=== PATIENT | male | born 1985 | race American Indian/Alaskan Native ===

== ENCOUNTER 2016-03-22 16:15 | Emergency (ER) | payer MEDICAID ==
[2016-03-22 16:41] VITALS: BP 120/74
--- NOTE | 2016-03-22 19:49 | Emergency Department Report ---
ED Extremity Problem HPI - General Chief complaint: Extremity Problem,Nontraumatic Stated complaint: SURGICAL LEFT LEG PAIN Time Seen by Provider: 03/22/16 19:31 Source: patient Mode of arrival: Wheelchair Limitations: No Limitations - History of Present Illness Initial comments: 30-year-old male past medical history ORIF with hardware fixation left knee 2014 presents with complaint of acute on chronic pain left knee. Patient states that approximately 3-1/2 weeks ago he may have twisted his knee while walking. Denies any other acute trauma. Denies any fever no chills. Patient is able to ambulate but with limp and left leg. Normal tone no swelling left leg/knee. Patient denies any paresthesias in left leg. States he has full sensation in left leg from hip down to toes. So he has frequent bouts of pain associated with his left knee. States ORIF was done in [place]. Complaint: extremity pain Onset/Timin -: year(s) Location: left History of Same: Yes -: Yes myalgia Radiation: none Severity scale (0 -10): 6 Quality: aching Consistency: constant Improves with: immobilization Worsens with: weight bearing Associated Symptoms: denies other symptoms - Related Data Previous Rx's Medication Instructions Recorded Last Taken Type Naproxen [Naproxen TAB] 250 mg PO BID PRN #14 tablet 03/22/16 Unknown Rx oxyCODONE [Roxicodone TAB] 5 mg PO Q6HR PRN #8 tablet 03/22/16 Unknown Rx Allergies Allergy/AdvReac Type Severity Reaction Status Date / Time acetaminophen [From Vicodin] Allergy Unknown Verified 03/22/16 16:35 hydrocodone Allergy Itching Verified 03/22/16 16:35 hydrocodone bitartrate Allergy Unknown Verified 03/22/16 16:35 [From Vicodin] oxycodone Allergy Swelling Verified 03/22/16 16:35 ED Review of Systems ROS: Stated complaint: SURGICAL LEFT LEG PAIN Other details as noted in HPI Constitutional: denies: chills, fever Eyes: denies: eye pain, eye discharge, vision change ENT: denies: ear pain, throat pain Respiratory: denies: cough, shortness of breath, wheezing Cardiovascular: denies: chest pain, palpitations Endocrine: no symptoms reported Gastrointestinal: denies: abdominal pain, nausea, diarrhea Genitourinary: denies: urgency, dysuria Musculoskeletal: as per HPI, arthralgia (chronic left knee pain status post knee surgery). denies: back pain, joint swelling Skin: denies: rash, lesions Neurological: denies: headache, weakness, paresthesias Psychiatric: denies: anxiety, depression Hematological/Lymphatic: denies: easy bleeding, easy bruising ED Past Medical Hx - Past Medical History Previous Medical History?: No - Surgical History Additional Surgical History: Left Knee Surgery 2014 - Social History Smoking Status: Never Smoker Substance Use Type: Alcohol, Marijuana - Medications Home Medications: Home Medications Medication Instructions Recorded Confirmed Last Taken Type Naproxen [Naproxen TAB] 250 mg PO BID PRN #14 tablet 03/22/16 Unknown Rx oxyCODONE [Roxicodone TAB] 5 mg PO Q6HR PRN #8 tablet 03/22/16 Unknown Rx ED Physical Exam - General Limitations: No Limitations General appearance: alert, in no apparent distress - Head Head exam: Present: atraumatic, normocephalic - Eye Eye exam: Present: normal appearance, PERRL, EOMI - ENT ENT exam: Present: mucous membranes moist - Neck Neck exam: Present: normal inspection - Respiratory Respiratory exam: Present: normal lung sounds bilaterally. Absent: respiratory distress - Cardiovascular Cardiovascular Exam: Present: regular rate, normal rhythm. Absent: systolic murmur, diastolic murmur, rubs, gallop - GI/Abdominal GI/Abdominal exam: Present: soft, normal bowel sounds - Rectal Rectal exam: Present: deferred - Extremities Exam Extremities exam: Present: normal inspection - Expanded Lower Extremity Exam Left Hip exam: Present: normal inspection, full ROM Upper Leg exam: Present: normal inspection, full ROM Knee exam: Present: tenderness (mild point tenderness lateral aspect left knee near anterior base of tibial tuberosity. Range of motion flexion and extension left knee fully intact active and passively. No erythema no significant joint swelling) Lower Leg exam: Present: normal inspection (no calf swelling or tenderness on clinical exam), full ROM Ankle exam: Present: normal inspection, full ROM Foot/Toe exam: Present: normal inspection, full ROM Neuro vascular tendon exam: Present: no vascular compromise Gait: Positive: observed and limited by pain - Back Exam Back exam: Present: normal inspection - Neurological Exam Neurological exam: Present: alert, oriented X3 - Psychiatric Psychiatric exam: Present: normal affect, normal mood - Skin Skin exam: Present: warm, dry, intact, normal color. Absent: rash ED Course Vital Signs 03/22/16 16:36 Temperature 98.5 F Pulse Rate 83 Respiratory 16 Rate Blood Pressure 120/74 O2 Sat by Pulse 98 Oximetry ED Medical Decision Making - Medical Decision Making A/P: Chronic left knee pain, possible chronic left knee fracture 1-case discussed with Dr. Diehl 2-will provide patient with short course of oxycodone. Patient states he has taken oxycodone and Percocet multiple times in the past without any allergic reaction. States that he has allergic reactions with hydrocodone Dilaudid and morphine, states that he had facial swelling the past. Naproxen when necessary. Patient states she does not have NSAID allergy 3-crutches, weightbearing as tolerated, knee immobilizer. Range of Motion left knee fully intact active and passive. No overlying erythema ,significant swelling or signs of cellulitis. 4-I informed patient of the findings on his x-ray and reinforced the importance of follow-up with orthopedics to mitigate any potential chronic loss of mobility or disability of his left lower extremity. Patient dated that he clearly understood these instructions and stated he will call himself for an orthopedic follow-up appointment as soon as possible. I provided him with follow-up information for orthopedics referral. Critical care attestation.: If time is entered above; I have spent that time in minutes in the direct care of this critically ill patient, excluding procedure time. ED Disposition Clinical Impression: Chronic pain of left knee Disposition: DISCHARGED TO HOME OR SELFCARE Is pt being admited?: No Does the pt Need Aspirin: No Condition: Stable Instructions: RICE Therapy (ED), Knee Pain (ED), Knee Immobilizer (ED), Crutch Instructions (ED) Additional Instructions: Patient understands and is call for follow-up with orthopedics as soon as possible. Prescriptions: Naproxen [Naproxen TAB] 250 mg PO BID PRN #14 tablet PRN Reason: Pain oxyCODONE [Roxicodone TAB] 5 mg PO Q6HR PRN #8 tablet PRN Reason: Pain Referrals: PRIMARY CARE, [Primary Care Provider] - 3-5 Days RIAZ JEFFERY MD [Staff Physician] - 3-5 Days JAZLYN CUEVA MD [Staff Physician] - 3-5 Days Time of Disposition: 22:10
[2016-03-22] MEDS ORDERED: NAPROSYN PO ONE (20:33)
--- NOTE | 2016-03-22 21:52 | XRay Report ---
FINAL REPORT EXAM: XR KNEE 1-2V LT HISTORY: knee pain COMPARISON: None available. FINDINGS: Two views of the left knee obtained. Prior plate screw fixation the proximal tibia. Surgical hardware appears intact. Heterotopic calcification at the lateral margin of the tibia. Minimal depression of the lateral tibial plateau related to prior fracture by 2-3 millimeters. Mild hypertrophic spurring of the medial lateral femoral condyle. No acute fracture dislocation. IMPRESSION: Remote fracture of the proximal tibia with lateral plate and screw fixation. Surgical hardware appears intact. Mild posttraumatic degenerative changes. No definite acute fracture.
== END 2016-03-22 22:34 | disposition home or self-care (01) ==
LOC: ED 16:15
DX: M25.562 Pain in left knee (principal); G89.29 Other chronic pain; F12.10 Cannabis abuse, uncomplicated